=== PATIENT | male | born 1995 | race Caucasian/White ===

== ENCOUNTER 2019-11-23 15:16 | Emergency (ER) | payer OTHER ==
[~2019-11-23] VITALS: Ht 162.6 cm; Wt 72.6 kg
[2019-11-23 15:22] VITALS: BP 116/72
--- NOTE | 2019-11-23 15:25 | NUR ---
Patient ambulated to chair A. RN evaluating patient at bedside.
--- NOTE | 2019-11-23 15:33 | NUR ---
24 Y/O MALE PRESENTS WITH RIGHT WRIST PALSY. PT UNABLE TO EXTEND WRIST. DENIES PAIN OR INJURY. PT STATES HE WOKE UP WITH INABILITY TO EXTEND WRIST, FEELING NUMBNESS AND TINGLINESS. RADIAL PULSES PRESENT BILAT. CAP REFILL <3 BILAT UPPER EXTR. RESP EVEN AND UNLABORED. AAOX3. NO PMH NKA
--- NOTE | 2019-11-23 15:35 | NUR ---
DR SALAMANCA EVALUATING PT AT THIS TIME
--- NOTE | 2019-11-23 15:46 | NUR ---
WRIST AND FOREARM SPLINT PLACED ON PT R WRIST, FASTENED TO PT SIZE. +CSM
[2019-11-23 15:52] VITALS: BP 116/72
--- NOTE | 2019-11-23 15:52 | NUR ---
Patient discharged with v/s stable. Written and verbal after care instructions given and explained. Patient verbalized understanding. Ambulatory with steady gait. All questions addressed prior to discharge. Advised to follow up with PMD.
== END 2019-11-23 15:52 | disposition home or self-care (01) ==
LOC: MED 15:16
DX: G56.31 Lesion of radial nerve, right upper limb (principal)
CPT/HCPCS: 99282; 99283

== ENCOUNTER 2019-11-30 14:34 | Emergency (ER) | payer OTHER ==
[~2019-11-30] VITALS: Ht 152.4 cm; Wt 73.9 kg
[2019-11-30 14:35] VITALS: BP 126/76
--- NOTE | 2019-11-30 14:35 | NUR ---
24 y/o m c/c work note for work. per pt needs clearance from [employer]MD to go back to work tomorrow. no other c/c noted. pt nka. hx asthma. no rx. no n/v/d. sitting in chair D.
--- NOTE | 2019-11-30 15:30 | NUR ---
DR HARMON EXAMINING PT
[2019-11-30 15:40] VITALS: BP 121/74
== END 2019-11-30 15:41 | disposition home or self-care (01) ==
LOC: MED 14:34
DX: G56.31 Lesion of radial nerve, right upper limb (principal); J45.909 Unspecified asthma, uncomplicated
CPT/HCPCS: 99282